=== PATIENT | male | born 1995 | race African-American/Black ===

== ENCOUNTER 2020-07-30 00:58 | Emergency (ER) | payer OTHER ==
[~2020-07-30] VITALS: Ht 175.3 cm; Wt 93.9 kg
[2020-07-30 01:02] VITALS: BP 150/70
[2020-07-30] MEDS ORDERED: LAMOTRIGINE250 MG PO (01:09)
[2020-07-30] MEDS ORDERED: KLONOPIN2 MG PO (01:10)
[2020-07-30] MEDS ORDERED: KEPPRA XR500 MG PO (01:10)
[2020-07-30] MEDS ORDERED: BLEPH-105 ML OPHTHALMIC (01:41)
== END 2020-07-30 01:50 | disposition home or self-care (01) ==
LOC: ER 00:58
DX: H10.9 Unspecified conjunctivitis (principal); Z88.8 Allergy status to other drugs, medicaments and biological substances; Z98.890 Other specified postprocedural states

== ENCOUNTER 2020-12-09 13:24 | Emergency (ER) | payer OTHER ==
[~2020-12-09] VITALS: Ht 175.3 cm; Wt 94.3 kg
[~2020-12-09 13:24] MED LIST: BLEPH-105 ML OPHTHALMIC; KEPPRA XR500 MG PO; KLONOPIN2 MG PO; LAMOTRIGINE250 MG PO
[2020-12-09] MEDS ORDERED: TESSALON PERLE100 MG PO (14:48)
[2020-12-09] MEDS ORDERED: PREDNISONE 20 M20 MG PO (14:50)
[2020-12-09 15:03] VITALS: BP 129/66
== END 2020-12-09 15:03 | disposition home or self-care (01) ==
LOC: ER 13:24
DX: R05 Cough (principal); Z79.899 Other long term (current) drug therapy; Z88.8 Allergy status to other drugs, medicaments and biological substances; Z98.2 Presence of cerebrospinal fluid drainage device